=== PATIENT | female | born 1995 | race Asian ===

== ENCOUNTER 2022-03-22 15:31 | Emergency (ER) | payer MEDICAID ==
[~2022-03-22] VITALS: Ht 165.1 cm; Wt 56.2 kg
--- NOTE | 2022-03-22 15:41 | NUR ---
URINE COLLECTED AND SENT TO LAB
--- NOTE | 2022-03-22 16:02 | NUR ---
THE PATIENT BIBS FOR C/O DYSURIA X 5 DAYS. RATES PAIN 4/10. WILL CONTINUE TO MONITOR THE PATIENT.
[2022-03-22 16:24] LABS: BILIRUBIN,URINE NEGATIVE (NEGATIVE); COLOR,URINE YELLOW (YELLOW); LEUKOCYTE ESTERASE ,URINE NEGATIVE (NEGATIVE); NITRITE, URINE NEGATIVE (NEGATIVE); PROTEIN,URINE NEGATIVE (NEGATIVE); UGLUCOSE NEGATIVE (NEGATIVE); UROBILINOGEN,URINE 0.2 EU/dL (0.2)
[2022-03-22 16:49] LABS: BACTERIA,URINE None seen /HPF (None Seen); RBC,URINE 0-2 /HPF (0-2); URINE AMORPHOUS PHOSPHATES Moderate /HPF (None Seen); WBC,URINE 0-2 /HPF (0-3)
[2022-03-22 17:33] VITALS: BP 105/63
--- NOTE | 2022-03-22 17:33 | NUR ---
Patient discharged to home in stable condition. Written and verbal after care instructions given. Patient verbalizes understanding of instruction.
== END 2022-03-22 17:34 | disposition home or self-care (01) ==
LOC: ER 15:31
DX: R30.0 Dysuria (principal)
CPT/HCPCS: 81001; 84703-TC; 87491; 87591